=== PATIENT | male | born 1945 | race Caucasian/White ===

== ENCOUNTER 2017-04-12 08:28 | Outpatient (CLI) | payer MEDICARE ==
[2017-04-12 09:05] LABS: HEMOGLOBIN 17.2 g/dL (14.1-18.0); LYMPH # 0.7 K/mm3 (0.7-4.5); LYMPH % 16.5 % (10-50)
[2017-04-12 09:22] LABS: BUN 13 mg/dL (7-18)
[2017-04-12 09:23] LABS: GFR (ESTIMATED) 54 ML/MIN (>60)
[2017-04-12 09:30] VITALS: BP 148/85
[2017-04-12 10:00] VITALS: BP 145/81
[2017-04-12 10:10] VITALS: BP 142/79
[2017-04-12] MEDS ORDERED: IMURAN50 M1 PO (15:29)
[2017-04-12] MEDS ORDERED: LEVOTHYROXINE0.15 MG PO (15:30)
[2017-04-12] MEDS ORDERED: FLONASE 50 MCG16 GM (15:30)
[2017-04-12] MEDS ORDERED: PREVACID 30MG C30 M1 PO (15:31)
[2017-04-12] MEDS ORDERED: TRICOR145 M1 PO (15:31)
== END 2017-04-12 10:20 | disposition home or self-care (01) ==
LOC: COP 08:28
PROVIDERS: Internal Medicine Gastroenterology
DX: K51.912 Ulcerative colitis, unspecified with intestinal obstruction (principal)
CPT/HCPCS: J3380

== ENCOUNTER 2017-04-26 08:45 | Outpatient (CLI) | payer MEDICARE ==
[~2017-04-26] VITALS: Ht 175.3 cm; Wt 93.9 kg
[~2017-04-26 08:45] MED LIST: FLONASE 50 MCG16 GM; IMURAN50 M1 PO; LEVOTHYROXINE0.15 MG PO; PREVACID 30MG C30 M1 PO; TRICOR145 M1 PO
[2017-04-26 09:03] LABS: HEMOGLOBIN 17.1 g/dL (14.1-18.0); LYMPH # 0.8 K/mm3 (0.7-4.5)
[2017-04-26] MEDS ORDERED: D-10001 TAB PO (09:09)
[2017-04-26 09:15] VITALS: BP 143/99
[2017-04-26 09:15] LABS: BUN 12 mg/dL (7-18)
[2017-04-26 09:19] LABS: GFR (ESTIMATED) 54 ML/MIN (>60)
[2017-04-26 09:30] VITALS: BP 145/90
[2017-04-26 09:45] VITALS: BP 150/83
[2017-04-26 10:00] VITALS: BP 135/85
== END 2017-04-26 10:00 | disposition home or self-care (01) ==
LOC: COP 08:45
PROVIDERS: Internal Medicine Gastroenterology
DX: K51.912 Ulcerative colitis, unspecified with intestinal obstruction (principal)
CPT/HCPCS: J3380

== ENCOUNTER 2017-05-23 08:35 | Outpatient (CLI) | payer MEDICARE ==
[~2017-05-23 08:35] MED LIST changes: +D-10001 TAB PO
[2017-05-23 09:14] LABS: HEMOGLOBIN 17.2 g/dL (14.1-18.0); LYMPH # 0.9 K/mm3 (0.7-4.5); LYMPH % 19.2 % (10-50)
[2017-05-23 09:15] VITALS: BP 140/77
[2017-05-23 09:28] LABS: BUN 11 mg/dL (7-18)
[2017-05-23 09:29] LABS: GFR (ESTIMATED) 54 ML/MIN (>60)
[2017-05-23 09:54] VITALS: BP 145/75
[2017-05-23 10:40] VITALS: BP 139/79
== END 2017-05-23 10:45 | disposition home or self-care (01) ==
LOC: COP 08:35
PROVIDERS: Internal Medicine Gastroenterology
DX: K51.912 Ulcerative colitis, unspecified with intestinal obstruction (principal)
CPT/HCPCS: J3380